=== PATIENT | female | born 2005 | race American Indian/Alaskan Native ===

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

== ENCOUNTER 2023-08-22 13:10 | Emergency (ER) | payer SELFPAY ==
[2023-08-22 14:54] LABS: APPEARANCE,URINE SLIGHTLY CLOUDY (CLEAR); BILIRUBIN,URINE NEGATIVE (NEGATIVE); COLOR,URINE YELLOW (YELLOW); GLUCOSE,URINE NEGATIVE (NEGATIVE); KETONES,URINE NEGATIVE (NEGATIVE); LEUKOCYTE ESTERASE,URINE SMALL (NEGATIVE); NITRITE,URINE NEGATIVE (NEGATIVE); OCCULT BLOOD,URINE LARGE (NEGATIVE); PROTEIN,URINE NEGATIVE (NEGATIVE); UROBILINOGEN,URINE 0.2 mg/dL (0.2-1.0)
[2023-08-22 15:09] LABS: BACTERIA,URINE MODERATE /HPF (0-FEW/HPF); EPITHELIAL CELLS,URINE MODERATE /HPF (NOT SEEN)
== END 2023-08-22 15:10 | disposition home or self-care (01) ==
LOC: DL.ED 13:10
DX: O20.0 Threatened abortion (principal); Z87.891 Personal history of nicotine dependence; Z3A.01 Less than 8 weeks gestation of pregnancy
CPT/HCPCS: 36415; 76817; 81001; 84702; 86900; 86901; 87086; 87088; 87186; 99284

== ENCOUNTER 2023-08-27 01:02 | Emergency (ER) | payer SELFPAY | END 2023-08-27 01:38 | disposition home or self-care (01) | LOC: DL.ED 01:02 | DX: O03.4 Incomplete spontaneous abortion without complication (principal) | CPT/HCPCS: 99283 ==

== ENCOUNTER 2024-12-01 17:08 | Emergency (ER) | payer MEDICAID ==
[2024-12-01 17:24] LABS: APPEARANCE,URINE SLIGHTLY CLOUDY (CLEAR); GLUCOSE,URINE NEGATIVE (NEGATIVE); OCCULT BLOOD,URINE TRACE-INTACT (NEGATIVE)
[2024-12-01 17:33] LABS: EPITHELIAL CELLS,URINE MODERATE /HPF (NOT SEEN)
[2024-12-01] MEDS: Acetaminophen/HYDROcodone 325-5 MG Tab PO ONE (17:52)
[2024-12-01] MEDS: cefTRIAXone 1 GM, Lidocaine 1% 2.1 ML IM ONE (17:53)
[2024-12-01] MEDS: Ondansetron 4 MG Tab.DIS PO ONE (17:53)
== END 2024-12-01 18:05 | disposition home or self-care (01) ==
LOC: DL.ED 17:08
DX: O23.11 Infections of bladder in pregnancy, first trimester (principal); N30.00 Acute cystitis without hematuria; Z3A.12 12 weeks gestation of pregnancy
CPT/HCPCS: 81001; 87086; 96372; 99283; 99284; A9270-GY; J0696; J2003

== ENCOUNTER 2025-01-08 21:42 | Emergency (ER) | payer MEDICAID ==
[2025-01-09 00:13] LABS: BASOPHILS PERCENT AUTO 0.4 % (0.0-1.0); EOSINOPHILS PERCENT AUTO 1.5 % (1.0-3.0); LYMPHOCYTES PERCENT AUTO 23.8 % (20.5-50.1); MONOCYTES PERCENT AUTO 5.5 % (2-8); NEUTROPHILS PERCENT AUTO 68.8 % (42.2-75.2); PLATELET COUNT,PLT 227 10^3/uL (150-450); RED BLOOD CELL COUNT 3.91 10^6/uL (4.2-5.4); WHITE BLOOD CELL COUNT,WBC 8.2 10^3/uL (5.0-10.0)
== END 2025-01-09 00:20 | disposition home or self-care (01) ==
LOC: DL.ED 21:42
DX: O02.1 Missed abortion (principal)
CPT/HCPCS: 36415; 85025; 99284